=== PATIENT | male | born 1980 | race African-American/Black ===

== ENCOUNTER 2019-03-18 13:04 | Outpatient (CLI) | payer OTHER | END 2019-03-18 17:56 | disposition home or self-care (01) | LOC: SRD 13:04 | PROVIDERS: ATTEND Internal Medicine | DX: M17.11 Unilateral primary osteoarthritis, right knee (principal) | CPT/HCPCS: 73564 ==

== ENCOUNTER 2019-03-20 08:36 | Outpatient (CLI) | payer OTHER ==
[2019-03-20 09:09] LABS: BASOPHILS % (AUTO) 0.8 % (0.0-2.0); EOSINOPHILS # (AUTO) 0.1 K/uL (0.0-0.4); EOSINOPHILS % (AUTO) 2.7 % (0.0-4.0); HEMATOCRIT 46.1 % (36-54); HEMOGLOBIN 15.5 g/dL (14.0-18.0); LYMPHOCYTES % (AUTO) 44.3 % (20.5-51.5); MEAN CORPUSCULAR HEMOGLOBIN 32 pg (27-31); MEAN CORPUSCULAR HGB CONC 34 % (32-36); MEAN CORPUSCULAR VOLUME 94 fL (79.0-98.0); MONOCYTES # (AUTO) 0.5 K/uL (0.0-1.0); MONOCYTES % (AUTO) 12.1 % (1.7-9.3); NEUTROPHILS # (AUTO) 1.8 K/uL (1.8-7.7); NEUTROPHILS % (AUTO) 40.1 % (40.0-70.0); PLATELET COUNT (AUTO) 227 K/uL (130-430); RED BLOOD CELL COUNT(AUTO) 4.93 MIL/uL (4.2-6.2); WHITE BLOOD COUNT (AUTO) 4.5 K/uL (4.8-10.8)
[2019-03-20 09:45] LABS: ALBUMIN 3.8 g/dL (3.4-4.8); CALCIUM 9.2 mg/dL (8.4-11.0); CREATININE 1.42 mg/dL (0.55-1.30); POTASSIUM 3.9 mmol/L (3.5-5.1); THYROID STIMULATING HORMONE 1.95 uIu/mL (0.34-4.82); TOTAL BILIRUBIN 0.9 mg/dL (0.0-1.0); URIC ACID 4.2 mg/dL (2.4-7.0)
[2019-03-20 09:56] LABS: ERYTHROCYTE SEDIMENTATION RATE 3 MM/HR (0-15)
[2019-03-21 04:06] LABS: HEMOGLOBIN A1C 5.3 % (4.8-5.6)
== END 2019-03-20 20:58 | disposition home or self-care (01) ==
LOC: SMI 08:36
PROVIDERS: ATTEND Internal Medicine
DX: S83.241A Other tear of medial meniscus, current injury, right knee, initial encounter (principal); M94.261 Chondromalacia, right knee; X58.XXXA Exposure to other specified factors, initial encounter; Y93.89 Activity, other specified; Y92.89 Other specified places as the place of occurrence of the external cause; Y99.8 Other external cause status
CPT/HCPCS: 36415; 73721; 80053; 80061; 82306; 82607; 83036; 84443-TC; 84550-TC; 85025; 85651-TC

== ENCOUNTER 2019-03-24 08:45 | Outpatient (CLI) | payer OTHER | END 2019-03-24 21:10 | disposition home or self-care (01) | LOC: SUS 08:45 | PROVIDERS: ATTEND Internal Medicine | DX: R94.5 Abnormal results of liver function studies (principal) | CPT/HCPCS: 76700-TC ==